=== PATIENT | male | born 1965 | race Caucasian/White ===

== ENCOUNTER → 2019-08-01 | Outpatient (CLI) | payer OTHER ==
[~2019-08-01] MED LIST: ATENOLOL 50MG T50 M1 PO; CEPHALEXIN 500500 M3 PO; DILANTIN100 MG PO; FLEXERIL PO; IBUPROFEN 800800 M1 PO; NORCO 5-325 TA1 EACH PO; SEROQUEL200 MG PO; VENTOLIN HFA 1818 GM INH; WELLBUTRIN SR150 MG PO; XANAX 0.5 MG0.5 MG PO; ZANTAC 150MG T150 MG PO; ZPAK PO
== END ==
LOC: NUC 09:54
DX: K57.30 Diverticulosis of large intestine without perforation or abscess without bleeding (principal); C61 Malignant neoplasm of prostate; N42.89 Other specified disorders of prostate; M47.816 Spondylosis without myelopathy or radiculopathy, lumbar region; M43.8X6 Other specified deforming dorsopathies, lumbar region; M51.46 Schmorl's nodes, lumbar region; Z90.49 Acquired absence of other specified parts of digestive tract